=== PATIENT | male | born 1970 | race Caucasian/White ===

== ENCOUNTER 2019-08-17 16:38 | Emergency (ER) | payer OTHER, SELFPAY ==
--- NOTE | ~2019-08-17 | XR_ITS ---
XR finger 3rd LT min 2V 08/17/2019 17:43 Indication: Crush injury. Finger pain. Procedure: 4 views left third finger Comparison: No prior studies for comparison. Findings: There is a nondisplaced tuft fracture left third distal phalanx. Moderate soft tissue swell ing. No foreign body. There is a small foreign body adjacent to the second proximal phalanx. Impression: 1: Nondisplaced tuft fracture left third distal phalanx. Reviewed, dictated and finalized at location A. [facility] Impression: 1: Nondisplaced tuft fracture left third distal phalanx.
[2019-08-17 16:55] VITALS: BP 141/86; PULSE 64; RESP 16; TEMP 36.9; O2SAT 98
--- NOTE | 2019-08-17 17:27 | ED.WOUNDLAC ---
HPI - Wound/Laceration General Chief Complaint: Wound/Laceration Stated Complaint: L/finger lacteration Time Seen by Provider: 08/17/19 17:23 Source: patient and RN notes reviewed Mode of arrival: ambulatory Limitations: no limitations History of Present Illness HPI narrative: Patient presents today with an injury to his left third finger. Reports a 200 pound object smashed his finger yesterday, leading to a laceration on the tip of his finger. Denies numbness or tingling to the finger. Currently rates his pain 3/10 and has tried no [id number] interventions prior to arrival. Date of his last tetanus shot is unknown. Related Data Allergies Allergy/AdvReac Type Severity Reaction Status Date / Time No Known Allergies Allergy Unknown Unverified 01/13/15 17:51 Review of Systems Review of Systems: Narrative: CONSTITUTIONAL: Denies body aches, fever, chills, or sweats. EYES: Denies visual changes, redness, or discharge. ENT: Denies rhinorrhea, congestion, sore throat, or otalgia. CARDIOVASCULAR: Denies chest pain, palpitations, or edema. RESPIRATORY: Denies cough or dyspnea. GASTROINTESTINAL: Denies abdominal pain, nausea, vomiting, or diarrhea. GENITOURINARY: Denies dysuria or hematuria. SKIN: Denies rash, itching, or wounds. MUSCULOSKELETAL: Denies back pain, or myalgia.+ Left third finger injury NEUROLOGIC: Denies headache, numbness, tingling, or weakness. PSYCH: Denies depression or anxiety. [facility] Family History Family History (Updated 02/21/14 @ 07:13 by DOCTOR UNKNOWN) Father Hypertension Grandparent Family history of Alzheimer's disease, Onset Age: 80 Social History Social History Smoking status: Never smoker Alcohol intake: current Comments At time of signature, I have reviewed and agree with nursing past medical, surgical, social and family history unless otherwise noted. Please see nursing chart for further information. There is no relevant family history pertinent to the presenting complaint Exam Narrative: Exam Narrative: GENERAL: Well-appearing, well-nourished, and in no acute distress. HEAD: Normocephalic, atraumatic. EYES: EOMI. No redness or drainage. Conjunctivae normal. ENT: Mucous membranes pink and moist. NECK: Normal AROM. CHEST: No respiratory distress. EXTREMITIES: Left third finger: 1.5 cm area full-thickness jagged laceration to the distal tip at the pad of the finger. Surrounding moderate edema. Mild subungual hematoma. Distal sensation intact. Capillary refill normal. Tenderness to the distal phalanx. Range of motion limited due to pain and swelling SKIN: Warm, dry, no rash. NEURO: No focal deficits. Alert and oriented x3. Gait steady. PSYCH: Normal affect. No signs of depression or anxiety. Course Vital Signs Vital signs: Vital Signs Temperature 98.5 F 08/17/19 16:55 Pulse Rate 64 08/17/19 16:55 Respiratory Rate 16 08/17/19 16:55 Blood Pressure 141/86 H 08/17/19 16:55 Pulse Oximetry 98 08/17/19 16:55 Temperature 98.5 F 08/17/19 16:55 Pulse Rate 64 08/17/19 16:55 Respiratory Rate 16 08/17/19 16:55 Blood Pressure 141/86 H 08/17/19 16:55 Pulse Oximetry 98 08/17/19 16:55 Reviewed. Pt has been instructed to follow up with his PCP regarding his elevated blood pressure today. Procedures Orthopedic Splinting/Casting Injury #1: Splinting/Casting Date: 08/17/19 Splinting/Casting Time: 18:00 Side: left Upper Extremity Injury Location: finger Splint: prefabricated Pre-Procedure Neuro Vascular Exam: normal Post-Procedure Neuro Vascular Exam: normal MDM - Wound/Laceration Differential Diagnosis Differential diagnosis: Likely laceration, avulsion of skin and other (Finger fracture, contusion) Imaging Data Radiologist's impression: ITS Impressions Finger X-Ray 08/17/19 17:47 Impression: 1: Nondisplaced tuft fracture left third distal phalanx. Critical Care
[2019-08-17] MEDS: TETANUS,DIPHTHERIA,AC PERTUSSIS ADULT 0.5 ML (ADACEL) IM (17:32)
== END 2019-08-17 18:02 | disposition home or self-care (01) ==
PROVIDERS: Emergency Provider Nurse Practitioner
DX: S62.643B Nondisplaced fracture of proximal phalanx of left middle finger, initial encounter for open fracture (principal); X58.XXXA Exposure to other specified factors, initial encounter; Z23 Encounter for immunization
CPT/HCPCS: 29130; 73140; 90471; 90715; 99214; G0463

== ENCOUNTER 2020-02-15 16:19 | Emergency (ER) | payer OTHER, SELFPAY ==
--- NOTE | ~2020-02-15 | XR_ITS ---
EXAMINATION: XR hand LT min 3V DATE: 02/15/2020 16:43 INDICATION: Smashing injury to the left hand with posterior laceration TECHNIQUE: Posteroanterior, oblique and lateral views of the left hand were obtained. COMPARISON: None. FINDINGS: Interval healing of the previously seen patellar fracture at the left third distal phalanx which is i n essentially anatomic alignment. 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 No acute fractures identified. Unchanged 2 mm radiopaque foreign body in the soft tissues at the radial aspect of the left second proximal phalanx. No new radiopaque foreign bodies identified. Minimal ulna r positive variance with juxtaposed cystic change at the distal ulna and ulnar side of the proximal a rticular surface of the lunate which suggests chronic ulnocarpal impaction syndrome. 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 Mild osteoarthritis at the first metacarpophalangeal and multiple inter phalangeal joints. IMPRESSION: 1. No acute fracture or new radiopaque foreign bodies. 2. Stable appearance of chronic degenerative and posttraumatic changes as detailed above. Reviewed, dictated and finalized at location A. IMPRESSION: 1. No acute fracture or new radiopaque foreign bodies. 2. Stable appearance of chronic degenerative and posttraumatic changes as armando led above.
[2020-02-15 16:32] VITALS: BP 148/83; PULSE 70; RESP 16; TEMP 37; O2SAT 100
--- NOTE | 2020-02-15 16:38 | ED.GENADULT ---
HPI - General Adult General Chief complaint: Extremity Injury, Upper Stated complaint: injury left hand Time Seen by Provider: 02/15/20 16:38 Source: patient Mode of arrival: ambulatory Limitations: no limitations History of Present Illness HPI narrative: 49-year-old male patient [facility] with complaints of laceration to the left hand. Patient states that he was at work today and was closing a garage door and states that slammed down on his left TM. Patient states that he had an updated tetanus shot about 6 months ago when he broke his finger. Related Data Home Medications Medication Instructions Recorded Confirmed No Home Medications 02/15/20 02/15/20 Allergies Allergy/AdvReac Type Severity Reaction Status Date / Time No Known Allergies Allergy Unknown Verified 02/15/20 16:40 Review of Systems Review of Systems: Narrative: CONSTITUTIONAL: Denies fever, chills, or sweats. EYES: Denies visual changes, redness, or discharge. ENT: Denies rhinorrhea, congestion, sore throat, or otalgia. CARDIOVASCULAR: Denies chest pain, palpitations, or edema. RESPIRATORY: Denies cough or dyspnea. GASTROINTESTINAL: Denies abdominal pain, nausea, vomiting, or diarrhea. GENITOURINARY: Denies dysuria or hematuria. SKIN: Denies rash or itching. Positive laceration to the left hand MUSCULOSKELETAL: Denies back pain, joint pain, or myalgia. NEUROLOGIC: Denies headache, numbness, or weakness. PSYCHIATRIC: Denies anxiety or depression. [facility] Family History Family History Father Hypertension Grandparent Family history of Alzheimer's disease, Onset Age: 80 Social History Social History Smoking status: Never smoker Alcohol intake: current Gender identity (if verbalized by the patient): Male Comments At the time of my signature I agree with nursing past medical history, surgical, social, and family history. There is no relevant family history pertinent to the presenting complaint. Exam Narrative: Exam Narrative: GENERAL: Well-appearing, well-nourished, and in no acute distress. HEAD: Normocephalic, atraumatic. EYES: PERRLA and EOMI. ENT: Nares clear, no rhinorrhea or epistaxis. Mucous membranes moist. NECK: Supple. No lymphadenopathy CHEST: Clear to auscultation. No respiratory distress. HEART: Regular rate and rhythm. No murmur heard. Normal peripheral pulses. ABDOMEN: Soft, nontender, nondistended, normal active bowel sounds. EXTREMITIES: The L hand is without obvious asymmetry or deformity when compared to the R hand. No swelling, erythema, atrophy, or obvious deformity. Patient has laceration to the dorsal portion of the left hand, superficial measuring approximately 2.5 cm. Bleeding controlled. Nail avulsion, tissue avulsion, partial or complete amputation, subungual hematoma, bony deformity. Normal cascade of fingers. Normal flexion and extension of fingers. FDS and FDP intact aganist restistance. No focal fullness, thobbing pain, swelling of fingertip. No tenderness to palpation Pulses and cap refill. SKIN: Warm, dry, no rash. Patient has approximately 2.5 cm superficial laceration, linear to the left dorsal hand. Bleeding intact. NEURO: No focal deficits. Alert and oriented x3. Course Vital Signs Vital signs: Vital Signs Temperature 37.0 C 02/15/20 16:32 Pulse Rate 70 02/15/20 16:32 Respiratory Rate 16 02/15/20 16:32 Blood Pressure 148/83 H 02/15/20 16:32 Pulse Oximetry 100 02/15/20 16:32 Temperature 37.0 C 02/15/20 16:32 Pulse Rate 70 02/15/20 16:32 Respiratory Rate 16 02/15/20 16:32 Blood Pressure 148/83 H 02/15/20 16:32 Pulse Oximetry 100 02/15/20 16:32 Vital signs reviewed. The patient has been informed that they may have pre-hypertension or Hypertension based on a BP reading in the department. I recommend that the patient call the primary care p
== END 2020-02-15 17:10 | disposition home or self-care (01) ==
PROVIDERS: Emergency Provider Nurse Practitioner Family
DX: S61.412A Laceration without foreign body of left hand, initial encounter (principal); W22.8XXA Striking against or struck by other objects, initial encounter
CPT/HCPCS: 12001; 73130; 90471; 99213; G0463

== ENCOUNTER 2020-07-12 01:05 | Outpatient (CLI) | payer OTHER, SELFPAY ==
[2020-07-12 18:47] LABS: SARS-CoV-2 RNA PCR Positive
== END 2020-07-12 01:06 | disposition home or self-care (01) ==
LOC: ANHCOVIDDT 01:05
PROVIDERS: PCP Family Medicine; Visit Provider Internal Medicine Gastroenterology
DX: Z01.812 Encounter for preprocedural laboratory examination (principal); U07.1 COVID-19
CPT/HCPCS: C9803; U0003; U0005

== ENCOUNTER 2020-09-12 16:49 | Outpatient (CLI) | payer OTHER, SELFPAY | END 2020-09-12 16:50 | disposition home or self-care (01) | LOC: ANHCOVIDVC 16:50 | PROVIDERS: PCP Family Medicine | DX: Z23 Encounter for immunization (principal) | CPT/HCPCS: 0001A; 91300 ==

== ENCOUNTER 2020-10-03 17:00 | Outpatient (CLI) | payer OTHER, SELFPAY | END 2020-10-03 17:01 | disposition home or self-care (01) | LOC: ANHCOVIDVC 17:00 | PROVIDERS: PCP Family Medicine | DX: Z23 Encounter for immunization (principal) | CPT/HCPCS: 0002A; 91300 ==

== ENCOUNTER 2021-03-09 01:32 | Day surgery (SDC) | payer OTHER, SELFPAY ==
[2020-07-07 09:54] VITALS: BMI 29.8
--- NOTE | 2020-07-14 08:09 | SUR.PREOP ---
Patient notified of positive COVID test results from July 12. Patient states he received a call yesterday informing him. States his symptoms are fever, ,aches and pains, mucous production and morning coughing. Instructed patient to self isolate and call primary care physician for follow up care. Informed patient of the need to reschedule colonoscopy in 6 weeks based on the protocol. Patient denies any questions at this time.
--- NOTE | 2021-02-25 14:11 | PC.NURSE ---
Patient states no changes in medical history since last interview. Patient now vaccinated and removed from [facility] swabbing list. Updated on arrival time and prep instructions.
[2021-03-09 06:22] VITALS: BMI 28.4
[2021-03-09] MEDS: LACTATED RINGERS 1,000 ML 150 ML IV CONT (06:51)
--- NOTE | 2021-03-09 07:08 | WPDANESEPPF ---
Anes - Initial Pre Proc Eval Procedure: Operation Date: 03/09/21 07:30 Proposed Procedures p Screening Colonoscopy - Stan Finn MD Date/Time: 03/09/21 07:08 Surgeon: Stan Finn MD Pre Op Diagnosis: Neoplasm Screening Patient Data Age: 50 Gender: M Height: 1.8 m Weight: 92.5 kg Allergies Allergy/AdvReac Type Severity Reaction Status Date / Time No Known Allergies Allergy Unknown Verified 03/09/21 06:21 Home Medications Medication Instructions Recorded Confirmed Type No Home Medications 03/03/21 03/09/21 History Patient hx anesthesia problems: none Family hx anesthesia problems: none PMFSH Surgical History Surgical History Status post hernia repair Family History Family History Father Hypertension Malignant neoplasm of prostate Grandparent Family history of Alzheimer's disease, Onset Age: 80 Mother Pancreatic cancer Social History Social History Smoking status: Never smoker Second hand tobacco smoke exposure: No Alcohol intake: current Substance use: never Substance use type: does not use Living arrangements: with family Gender identity (if verbalized by the patient): Male Spiritual care concerns: No Anes - Eval Final PreProcedure Day of Procedure 03/09/21 07:08 Patient weight: overweight Heart: regular rate and rhythm Lungs: clear to auscultation and normal air movement Airway: Mallampati scale class II Neurological: alert and oriented Last oral intake: >/= 8 hours ASA classification: II Emergent: no Anesthetic plan: proceed Anesthesia type and monitoring: general GIVS Informed Consent: The patient's anesthetic plan and its attendant risks and benefits were discussed with the patient/family/POA. Questions were solicited and answers provided to the satisfaction of the patient/family/POA.
[2021-03-09 07:09] VITALS: BP 130/93; PULSE 63; RESP 16; TEMP 36.4; O2SAT 99
--- NOTE | 2021-03-09 07:41 | SUR.OPER ---
cecal time [id number]
--- NOTE | 2021-03-09 07:50 | PM.HPGS ---
History of Present Illness History of Present Illness Consent: Risks, benefits, and alternatives have been discussed and questions answered. Patient agrees to proceed with procedure. Chief complaint: Neoplasm Screening Narrative: Nick Martinez is a 50 year old male here for first screening colonoscopy Review of Systems Constitutional: Constitutional: Denies headache(s) and Denies weakness Eyes: Eyes: Denies blurry vision ENT: Reports Normal hearing present, Denies headache(s) and Denies neck pain Cardiovascular: Cardiovascular: Denies chest pain and Denies dyspnea Respiratory: Respiratory: Denies dyspnea Gastrointestinal: Gastrointestinal: Reports no additional gastrointestinal complaints Genitourinary: Genitourinary: Denies dysuria Musculoskeletal: Musculoskeletal: Denies neck pain Integumentary/Breasts: Skin/Breast: Denies dry skin Neurologic: Reports Normal hearing present, Denies headache(s) and Denies weakness Psychiatric: Psychiatric: Denies anxiety Endocrine: Endocrine: Denies change in body appearance Hematologic/Lymphatic: Hematologic/Lymphatic: Denies easy bleeding Allergic/Immunologic: Allergic/Immunologic: Denies urticaria PMF Past Medical History Medical History (Updated 03/09/21 @ 07:50 by Stan Finn MD) Colon cancer screening Surgical History Surgical History Status post hernia repair Family History Family History Father Hypertension Malignant neoplasm of prostate Grandparent Family history of Alzheimer's disease, Onset Age: 80 Mother Pancreatic cancer Social History Social History Smoking status: Never smoker Second hand tobacco smoke exposure: No Alcohol intake: current Substance use: never Substance use type: does not use Living arrangements: with family Gender identity (if verbalized by the patient): Male Spiritual care concerns: No Meds Home Medications and Allergies Home Medications Medication Instructions Recorded Confirmed Type No Home Medications 03/03/21 03/09/21 History Allergies Allergy/AdvReac Type Severity Reaction Status Date / Time No Known Allergies Allergy Unknown Verified 03/09/21 06:21 Vital Signs Vital Signs - 24 hr 03/09/21 07:09 Temperature 97.5 F L Pulse Rate 63 Respiratory Rate 16 Blood Pressure 130/93 H Pulse Oximetry 99 Exam Const: General: comfortable and no acute distress HENMT: General nose exam: Normal nares present Eyes: General: appearance normal, both eyes and all related structures Neck: Neck: no JVD Resp: Auscultation: clear to auscultation bilaterally Cardio: Rate: regular rate Rhythm: regular rhythm GI: Inspection: non-distended GI Palp: Yes Soft to palpation Skin: General skin exam: normal color Neuro: General: gait normal Speech: normal speech Extrem: General: normal to inspection Psych: Mental Status: mental status grossly normal Assessment and Plan Assessment and plan (1) Colon cancer screening: Code(s): Z12.11 - Encounter for screening for malignant neoplasm of colon Status: Acute Assessment and Plan: colonoscopy
[2021-03-09 07:53] VITALS: BP 95/58; PULSE 68; RESP 22; O2SAT 97
[2021-03-09 08:03] VITALS: BP 96/56; PULSE 58; RESP 19; O2SAT 99
[2021-03-09 08:13] VITALS: BP 113/62; PULSE 54; RESP 19; O2SAT 99
== END 2021-03-09 08:25 | disposition home or self-care (01) ==
PROVIDERS: Family Provider Family Medicine; PCP Family Medicine; Visit Provider Internal Medicine Gastroenterology
PROC: 0DJD8ZZ Inspection of Lower Intestinal Tract, Via Natural or Artificial Opening Endoscopic (ICD-10-PCS; CPT 45378; principal; 2021-03-09 07:30)
DX: Z12.11 Encounter for screening for malignant neoplasm of colon (principal)
CPT/HCPCS: 45378; J2704; J7120

== ENCOUNTER 2021-08-14 12:41 | Emergency (ER) | payer OTHER, SELFPAY ==
--- NOTE | 2021-08-14 12:49 | ED.WOUNDLAC ---
HPI - Wound/Laceration General Chief Complaint: Wound/Laceration Stated Complaint: cut right thumb Time Seen by Provider: 08/14/21 12:58 Source: patient, RN notes reviewed and old records reviewed Mode of arrival: ambulatory Limitations: no limitations History of Present Illness HPI narrative: 50-year-old male presents to the [facility] with complaints of a laceration to the palmar aspect right thumb. States he was using a table saw when he cut and removed skin. Full range of motion. Sensation intact distal to injury. Capillary refill under 2 seconds. [id number] Related Data Allergies Allergy/AdvReac Type Severity Reaction Status Date / Time No Known Allergies Allergy Unknown Verified 08/14/21 12:43 Review of Systems Review of Systems: All systems reviewed & are unremarkable except as noted in HPI and below Constitutional: Constitutional: Reports no additional constitutional complaints, Denies chills and Denies fever(s) Eyes: Eyes: Reports no additional eye complaints ENT: Reports system reviewed and no additional complaints, except as documented Cardiovascular: Cardiovascular: Reports no additional cardiovascular complaints Respiratory: Respiratory: Reports no additional respiratory complaints Gastrointestinal: Gastrointestinal: Reports no additional gastrointestinal complaints Musculoskeletal: Musculoskeletal: Reports no additional musculoskeletal complaints Integumentary/Breasts: Skin/Breast: Reports as per HPI Comments: Laceration right palmar aspect thumb, bleeding controlled Neurologic: Reports system reviewed and no additional complaints, except as documented Psychiatric: Psychiatric: Reports no additional psychiatric complaints Allergic/Immunologic: Allergic/Immunologic: Reports no additional allergic/immunologic complaints [facility] Past Medical History Medical History (Updated 08/14/21 @ 14:25 by Tosin Ulrich) Colon cancer screening Surgical History Surgical History Status post hernia repair Family History Family History Father Hypertension Malignant neoplasm of prostate Grandparent Family history of Alzheimer's disease, Onset Age: 80 Mother Pancreatic cancer Social History Social History Smoking status: Never smoker Second hand tobacco smoke exposure: No Alcohol intake: current Substance use: never Substance use type: does not use Gender identity (if verbalized by the patient): Male Spiritual care concerns: No Comments At the time of my signature, I reviewed and agree with the nursing past medical, surgical, social, and family history. There is no relevant family history pertinent to the patient complaint. Exam Const: General: healthy appearing, no acute distress and alert Nutritional Appearance: well nourished Orientation/consciousness: patient oriented x3 Limitations: no limitations HENMT: Head: normal to inspection Eyes: Pupils: Equal, round and reactive pupils present Neck: Neck: normal visual inspection, no lymphadenopathy and no meningeal signs Chest: Chest palpation & inspection: normal inspection of the chest Resp: Effort & Inspection: normal respiratory effort Cardio: Rate: regular rate Rhythm: regular rhythm : General: Yes no CVA tenderness Skin: General skin exam: normal color Wounds: wounds noted laceration right palmar thumb size (3.3 cm x 0.5 cm) Neuro: General: patient oriented x3, moves all extremities, no meningeal signs and no focal motor deficits Cranial nerves: Yes Equal, round and reactive pupils present Speech: normal speech Gait exam (Neuro): Normal gait present Extrem: General: normal to inspection Psych: Appearance: grossly normal and well kempt Mental Status: mental status grossly normal Affect: normal affect Attitude: cooperative Thought content: Yes Normal thought cont
[2021-08-14 12:57] VITALS: BP 160/81; PULSE 66; RESP 18; TEMP 36.6; O2SAT 98
== END 2021-08-14 14:39 | disposition home or self-care (01) ==
PROVIDERS: Emergency Provider Nurse Practitioner; PCP Family Medicine
DX: S61.011A Laceration without foreign body of right thumb without damage to nail, initial encounter (principal); W31.2XXA Contact with powered woodworking and forming machines, initial encounter
CPT/HCPCS: 12002; 99213; G0463

== ENCOUNTER 2024-11-12 19:04 | Emergency (ER) | payer OTHER, SELFPAY ==
[2024-11-12 19:10] VITALS: BP 131/77; PULSE 66; RESP 18; TEMP 36.4; O2SAT 98
--- NOTE | 2024-11-12 19:34 | ED_ITS ---
HPI - Eye Problem General Chief complaint: Eye Problems Stated complaint: left eye irritation Time Seen by Provider: 11/12/24 19:34 Source: patient, RN notes reviewed and old records reviewed Mode of arrival: ambulatory Limitations: no limitations History of Present Illness HPI Narrative: 54-year-old male presents to the [facility] with pain to the left eye since yesterday. Patient states that he was breaking up some blinds and thought he had something go into his eye. Has had pain, tenderness since. Increased tearing. Denies any blurry vision or change in vision. Patient is not a contact wearer. No hyphema. Related Data Patient tetanus UTD: No Home Medications Medication Instructions Recorded Confirmed Last Taken Type No Home Medications 08/28/21 11/12/24 Unknown History Allergies Allergy/AdvReac Type Severity Reaction Status Date / Time No Known Allergies Allergy Unknown Verified 11/12/24 19:05 Review of Systems 2 Review of Systems: All systems reviewed & are unremarkable except as noted in HPI and below Constitutional: Constitutional: Reports no additional constitutional complaints Eyes: Eyes: Reports as per HPI, Denies change in vision and Reports eye pain ENT: Reports system reviewed and no additional complaints, except as documented Cardiovascular: Cardiovascular: Reports no additional cardiovascular complaints, Denies chest pain and Denies dyspnea Respiratory: Respiratory: Reports no additional respiratory complaints, Denies chest congestion, Denies cough and Denies dyspnea Musculoskeletal: Musculoskeletal: Reports no additional musculoskeletal complaints Integumentary/Breasts: Skin/Breast: Reports system reviewed and no additional complaints, except as docu PMFSH Past Medical History Medical History Colon cancer screening Surgical History Surgical History Status post hernia repair Family History Family History Father Hypertension Malignant neoplasm of prostate Grandparent Family history of Alzheimer's disease, Onset Age: 80 Mother Pancreatic cancer Social History Social History Smoking status: Never smoker Second hand tobacco smoke exposure: No Alcohol intake: current Substance use: never Substance use type: does not use Do You Feel Safe in your Home?: Yes Lack of Transportation: No Lack of Food: Never True Current Housing: I Have Housing Concerned About Future Housing: No Difficulty Paying Gas/Electric Bills: No Difficulty Paying for Meds: No Currently Unemployed: No Education: Trade/Vocational Certificate Difficulty w/ Childcare or Family Care: No Living arrangements: with family Occupation/Education: occupation Gender identity (if verbalized by the patient): Male Spiritual care concerns: No Comments At the time of my signature, I reviewed and agree with the nursing past medical, surgical, social, and family history. There is no relevant family history pertinent to the patient complaint. Exam 2 Const: General: cooperative, healthy appearing, comfortable, no acute distress, well developed, alert and well nourished Nutritional Appearance: w ell nourished Orientation/consciousness: patient oriented x3 Limitations: no limitations HENMT: Head: normal to inspection Eyes: General: appearance normal, both eyes and all related structures A lignment and Position: alignment normal Eyelids: eyelids normal C onjunctivae: conjunctivae normal Cornea: corneas abnormal on the left fluorescein used, diffuse opacification and foreign body at clock position (7) EOM: EOMs intact bilaterally Eyes/upper lids images: 1. A dark foreign body Neck: Neck: normal visual inspection, full ROM, no lymphadenopathy and no meningeal signs Chest: Chest palpation & inspection: normal inspection of the chest Resp: Effort & Inspection: normal respiratory effort and able to speak in complete sentences Cardio: Rate: regular rate Skin: General skin exam: normal color and no rashes or lesions noted Neuro: General: patient oriented x3, gait normal, moves all extremities and no meningeal signs Cognition (Neuro): normal cognition Speech: normal speech Gait exam (Neuro): Normal gait present Extrem: General: normal to inspection, full ROM, capillary refill normal and normal gait Psych: Appearance: grossly normal and well kempt Mental Status: mental status grossly normal Speech and movement: Normal speech and movement present and Clear speech present Affect: normal affect Attitude: cooperative Course Course Level of Care: Express Care Visit Vital Signs Vital signs: Vital Signs Temperature 97.5 F L 11/12/24 19:10 Pulse Rate 66 11/12/24 19:10 Respiratory Rate 18 11/12/24 19:10 Blood Pressure 131/77 11/12/24 19:10 Pulse Oximetry 98 11/12/24 19:10 Oxygen Delivery Room Air 11/12/24 19:10 Temperature 97.5 F L 11/12/24 19:10 Pulse Rate 66 11/12/24 19:10 Respiratory Rate 18 11/12/24 19:10 Blood Pressure 131/77 11/12/24 19:10 Pulse Oximetry 98 11/12/24 19:10 Oxygen Delivery Room Air 11/12/24 19:10 Reviewed Transfer Transfered to: [facility] Hospital Transportation: Other (poc) Transfer rationale: Foreign body left eye, imbedded in cornea sending for higher level of care Accepting physician: DR Ambrosio ophthalmology Spoke with Norm MAGANA, Dr. Petersen ER doctor excepting MDM - Eye Problem MDM Narrative Medical decision making narrative: Patient reports pain to the left eye. Fluorescein stain and exam shows foreign body of the cornea, sending for higher level of care Transfer instructions reviewed with patient and his . Go directly to the ER. All questions have been answered, and the patient deny any further questions Some parts of this dictation were generated by voice recognition software and may contain typographical and/or grammatical inaccuracies. Differential Diagnosis Differential diagnosis: Likely corneal abrasion, conjunctivitis, acute iritis, hyphema, subconjunctival hemorrhage, corneal ulcer and ruptured globe Critical Care Time Critical Care Time Critical Care Time: No Discharge Plan Discharge Clinical Impression: Acute foreign body of left cornea Patient Disposition: Acute Care Hospital Condition: Stable Patient Language: Setswana Prescriptions: No Action No Home Medications Follow-up/Referrals: Brady Chery MD [Primary Care Provider] -
[2024-11-12] MEDS: TETRACAINE HCL 0.5% OPHTH SOLN 4 ML BTL 1 DROP LEFT EYE (19:36)
[2024-11-12] MEDS: FLUORESCEIN SOD 1 MG/STRIP EACH EYE (19:36)
[2024-11-12] MEDS: TETANUS,DIPHTHERIA,AC PERTUSSIS ADULT (0.5 ML) BOOSTRIX IM (19:49)
== END 2024-11-12 20:01 | disposition short-term general hospital (02) ==
LOC: EXPCOLL 19:06
PROVIDERS: PCP Family Medicine
DX: T15.02XA Foreign body in cornea, left eye, initial encounter (principal); W44.9XXA Unspecified foreign body entering into or through a natural orifice, initial encounter; Z23 Encounter for immunization
CPT/HCPCS: 90471; 90715; 99213; G0463